=== PATIENT | female | born 1955 | race Caucasian/White ===

== ENCOUNTER 2017-07-03 20:35 | Emergency (ER) | payer MEDICARE ==
[~2017-07-03] VITALS: Ht 157.5 cm; Wt 51.8 kg
[~2017-07-03 20:35] MED LIST: BACLOFEN10 MG OR; CYANOCOBALAM1000 MCG IJ; LIBRAX1 CAP OR; METOPROL TAR25 MG PO; MIRAPEX0.25 MG OR; MIRAPEX0.5 MG OR; NEXIUM40 M1 OR; OXYCODONE5 MG OR; PENICILLN VK500 MG PO; PERCOCET1 TA2 OR; PREMARIN0.3 MG OR; PREMARIN0.9 MG OR; SYNTHROID25 MCG OR; ULTRAM50 MG PO; ZPAK OR
[2017-07-03 22:17] LABS: HEMATOCRIT 48.5 % (37.0-47.0); HEMOGLOBIN 16.3 g/dl (12.0-16.0); IMMATURE GRANULOCYTES 0.7 % (0.0-1.0); MEAN CELL VOLUME 95.1 fL CALC (80.0-100.0); MEAN CORPUSCULAR HGB CONC 33.6 g/L CALC (32.0-36.0); NEUT# 10.75 thou/uL (2.00-7.15); RED BLOOD COUNT 5.1 mill/uL (4.20-5.60); RED CELL DISTRI WIDTH 12.3 % (11.5-15.5)
[2017-07-03 22:20] LABS: URINE BILIRUBIN - DIPSTICK NEGATIVE (NEGATIVE); URINE BLOOD DIPSTICK SMALL (NEGATIVE); URINE COLOR YELLOW; URINE GLUCOSE - DIPSTICK 100 mg/dL (NEGATIVE); URINE KETONE NEGATIVE (NEGATIVE); URINE LEUK ESTERASE NEGATIVE (NEGATIVE); URINE NITRITE - DIPSTICK NEGATIVE (Negative); URINE PH 6.5 (4.5-8.0); URINE PROTEIN - DIPSTICK 100 mg/dL (NEG-TRACE); URINE SPECIFIC GRAVITY >=1.030; URINE UROBILINOGEN - DIPSTICK 0.2 E.U./dL (0.2)
[2017-07-03 22:22] LABS: URINE CLARITY CLEAR
[2017-07-03 22:29] LABS: URINE SQUAMOUS EPITHELIAL CELL FEW EPI/hpf (0-FEW); URINE WBC 0-2 WBC/hpf (0-5)
[2017-07-03 22:36] LABS: ALBUMIN 5.1 g/dL (3.2-5.0); ALKALINE PHOSPHATASE 88 u/l (38-126); AMYLASE 64 u/l (30-110); ANION GAP 21 (6-22 (CALC)); BILIRUBIN, TOTAL 0.4 mg/dL (0.0-1.4); BUN 24 mg/dL (8-23); BUN/CREATININE RATIO 22 (12-20 (CALC)); CARBON DIOXIDE 24 mmol/l (22-30); CHLORIDE 103 mmol/l (95-108); CREATININE 1.1 mg/dL (0.5-1.0); GFR 50 ML/MIN (>=60 (CALC)); GFR FOR AFR.AMER. > 60 ML/MIN (>=60 (CALC)); LIPASE 164 u/l (23-300); POTASSIUM 4.4 mmol/l (3.5-5.1); SGOT/AST 26 u/l (9-36); SGPT/ALT 27 u/l (11-66); SODIUM 143 mmol/l (137-146)
[2017-07-03 22:46] LABS: MYOGLOBIN 24 ng/mL (0 - 62)
[2017-07-04] MEDS ORDERED: Levaquin PO (00:23)
[2017-07-04 00:47] VITALS: BP 178/65
== END 2017-07-04 00:45 | disposition home or self-care (01) ==
LOC: ED 20:35
PROVIDERS: Emergency Medicine
DX: N13.2 Hydronephrosis with renal and ureteral calculous obstruction (principal); I10 Essential (primary) hypertension; N21.0 Calculus in bladder; R11.2 Nausea with vomiting, unspecified; R35.0 Frequency of micturition; R50.9 Fever, unspecified

== ENCOUNTER 2019-10-08 02:03 | Inpatient (IN) | payer MEDICARE ==
[~2019-10-08 02:03] MED LIST changes: -BACLOFEN10 MG OR; +BACLOFEN10 MG PO; +Levaquin PO; -NEXIUM40 M1 OR; +NEXIUM40 M1 PO; -PERCOCET1 TA2 OR; +PERCOCET1 TA2 PO; -SYNTHROID25 MCG OR; +SYNTHROID25 MCG PO
[2019-10-08 03:14] LABS: IMMATURE GRANULOCYTES 0.4 % (0.0-5.0); MEAN CORPUSCULAR HGB 21.8 pG CALC (26.0-32.0); MEAN CORPUSCULAR HGB CONC 29.1 g/dL CAL (32.0-36.0); NEUT# 17.04 thou/uL (2.00-7.15); RED BLOOD COUNT 5.14 mill/uL (4.20-5.60); RED CELL DISTRI WIDTH 19.9 % (11.5-15.5)
[2019-10-08 03:16] LABS: HEMATOCRIT 38.5 % (37.0-47.0); HEMOGLOBIN 11.2 g/dl (12.0-16.0); MEAN CELL VOLUME 74.9 fL CALC (80.0-100.0)
[2019-10-08 03:26] LABS: ALBUMIN 4.7 g/dL (3.2-5.0); ALKALINE PHOSPHATASE 87 u/l (38-126); BUN 9 mg/dL (8-23); BUN/CREATININE RATIO 7 (12-20 (CALC)); CARBON DIOXIDE 24 mmol/l (22-30); CHLORIDE 101 mmol/l (95-108); CREATININE 1.3 mg/dL (0.5-1.0); GFR 41 ML/MIN (>=60 (CALC)); GFR FOR AFR.AMER. 50 ML/MIN (>=60 (CALC)); SODIUM 136 mmol/l (137-146); TOTAL PROTEIN 7.9 g/dL (6.3-8.2)
[2019-10-08 03:28] LABS: ANION GAP 14 (6-22 (CALC)); BILIRUBIN, TOTAL 0.8 mg/dL (0.0-1.4); SGOT/AST 369 u/l (9-36)
[2019-10-08 04:18] LABS: AMYLASE 7140 u/l (30-110)
[2019-10-08 05:20] LABS: LIPASE 119060 u/l (23-300)
[2019-10-08 05:41] LABS: MYOGLOBIN 64 ng/mL (0 - 62)
[2019-10-08 07:50] VITALS: BP 130/62
[2019-10-08 08:09] LABS: ANION GAP 10 (6-22 (CALC)); BUN 9 mg/dL (8-23); BUN/CREATININE RATIO 10 (12-20 (CALC)); CARBON DIOXIDE 21 mmol/l (22-30); CHLORIDE 109 mmol/l (95-108); CREATININE 0.9 mg/dL (0.5-1.0); GFR > 60 ML/MIN (>=60 (CALC)); GFR FOR AFR.AMER. > 60 ML/MIN (>=60 (CALC)); MAGNESIUM 1.7 mg/dL (1.6-2.3); POTASSIUM 4.3 mmol/l (3.5-5.1); SODIUM 136 mmol/l (137-146)
[2019-10-08 16:46] VITALS: BP 118/65
[2019-10-08 20:10] VITALS: BP 131/47
[2019-10-09 03:26] VITALS: BP 129/62
[2019-10-09 05:43] LABS: MEAN CELL VOLUME 74.6 fL CALC (80.0-100.0); MEAN CORPUSCULAR HGB 22.1 pG CALC (26.0-32.0); MEAN CORPUSCULAR HGB CONC 29.6 g/dL CAL (32.0-36.0); RED BLOOD COUNT 3.9 mill/uL (4.20-5.60); RED CELL DISTRI WIDTH 19.6 % (11.5-15.5)
[2019-10-09 05:59] LABS: ALKALINE PHOSPHATASE 78 u/l (38-126); AMYLASE 442 u/l (30-110); ANION GAP 11 (6-22 (CALC)); BILIRUBIN, TOTAL 0.8 mg/dL (0.0-1.4); BUN 7 mg/dL (8-23); BUN/CREATININE RATIO 9 (12-20 (CALC)); CARBON DIOXIDE 25 mmol/l (22-30); CHLORIDE 101 mmol/l (95-108); CREATININE 0.8 mg/dL (0.5-1.0); GFR > 60 ML/MIN (>=60 (CALC)); GFR FOR AFR.AMER. > 60 ML/MIN (>=60 (CALC)); LIPASE 1045 u/l (23-300); POTASSIUM 3.8 mmol/l (3.5-5.1); SGOT/AST 113 u/l (9-36); SODIUM 133 mmol/l (137-146); TOTAL PROTEIN 6.6 g/dL (6.3-8.2)
[2019-10-09 06:33] LABS: HEMOGLOBIN 8.6 g/dl (12.0-16.0)
[2019-10-09 06:34] LABS: HEMATOCRIT 29.1 % (37.0-47.0)
[2019-10-09 07:26] VITALS: BP 139/65
[2019-10-09] MEDS ORDERED: NORVASC5 M1 PO (09:48)
[2019-10-09] MEDS ORDERED: LISINOPRIL10 MG PO (09:49)
[2019-10-09] MEDS ORDERED: PLAVIX75 MG PO (09:49)
[2019-10-09] MEDS ORDERED: GABAPENTIN100 MG PO (09:50)
[2019-10-09 15:30] VITALS: BP 137/64
[2019-10-09 18:55] VITALS: BP 128/64
[2019-10-10] VITALS (9 sets, daily range): BP systolic 138–163; BP diastolic 50–76
[2019-10-10 05:36] LABS: HEMATOCRIT 30.2 % (37.0-47.0); IMMATURE GRANULOCYTES 0.3 % (0.0-5.0); MEAN CELL VOLUME 74.4 fL CALC (80.0-100.0); MEAN CORPUSCULAR HGB 22.2 pG CALC (26.0-32.0); MEAN CORPUSCULAR HGB CONC 29.8 g/dL CAL (32.0-36.0); RED BLOOD COUNT 4.06 mill/uL (4.20-5.60); RED CELL DISTRI WIDTH 19.4 % (11.5-15.5)
[2019-10-10 05:59] LABS: ALKALINE PHOSPHATASE 82 u/l (38-126); AMYLASE 89 u/l (30-110); ANION GAP 15 (6-22 (CALC)); BILIRUBIN, TOTAL 0.8 mg/dL (0.0-1.4); BUN 7 mg/dL (8-23); BUN/CREATININE RATIO 11 (12-20 (CALC)); CARBON DIOXIDE 21 mmol/l (22-30); CHLORIDE 100 mmol/l (95-108); CREATININE 0.6 mg/dL (0.5-1.0); GFR > 60 ML/MIN (>=60 (CALC)); GFR FOR AFR.AMER. > 60 ML/MIN (>=60 (CALC)); LIPASE 185 u/l (23-300); POTASSIUM 3.4 mmol/l (3.5-5.1); SGOT/AST 44 u/l (9-36); SODIUM 133 mmol/l (137-146); TOTAL PROTEIN 6.8 g/dL (6.3-8.2)
[2019-10-11 00:05] VITALS: BP 133/65
[2019-10-11 03:55] VITALS: BP 144/66
[2019-10-11 06:11] LABS: HEMATOCRIT 28.4 % (37.0-47.0); HEMOGLOBIN 8.3 g/dl (12.0-16.0); IMMATURE GRANULOCYTES 0.6 % (0.0-5.0); MEAN CELL VOLUME 75.5 fL CALC (80.0-100.0); MEAN CORPUSCULAR HGB 22.1 pG CALC (26.0-32.0); MEAN CORPUSCULAR HGB CONC 29.2 g/dL CAL (32.0-36.0); NEUT# 6.28 thou/uL (2.00-7.15); RED BLOOD COUNT 3.76 mill/uL (4.20-5.60); RED CELL DISTRI WIDTH 19.8 % (11.5-15.5)
[2019-10-11 06:34] LABS: ANION GAP 16 (6-22 (CALC)); BUN 10 mg/dL (8-23); BUN/CREATININE RATIO 14 (12-20 (CALC)); CARBON DIOXIDE 22 mmol/l (22-30); CHLORIDE 99 mmol/l (95-108); CREATININE 0.8 mg/dL (0.5-1.0); GFR > 60 ML/MIN (>=60 (CALC)); GFR FOR AFR.AMER. > 60 ML/MIN (>=60 (CALC)); POTASSIUM 3.7 mmol/l (3.5-5.1); SODIUM 134 mmol/l (137-146)
[2019-10-11 08:05] VITALS: BP 176/54
[2019-10-11 09:09] VITALS: BP 176/54
== END 2019-10-11 13:10 | disposition home or self-care (01) | DRG 418 ==
LOC: ED 02:03 → ED-I 03:17 → ED 03:17 → ED-I 05:55 → ED 06:09 → ED-I 06:10 → MS2 06:10
PROVIDERS: Emergency Medicine; Internal Medicine; Nurse Practitioner Family; ADMIT Internal Medicine; ATTEND Internal Medicine
PROC: 0FT44ZZ Resection of Gallbladder, Percutaneous Endoscopic Approach (ICD-10-PCS; principal; 2019-10-10)
PROC: BF001ZZ Plain Radiography of Bile Ducts using Low Osmolar Contrast (ICD-10-PCS; 2019-10-10)
DX: K85.10 Biliary acute pancreatitis without necrosis or infection (principal); K80.10 Calculus of gallbladder with chronic cholecystitis without obstruction; K82.1 Hydrops of gallbladder; E87.6 Hypokalemia; I10 Essential (primary) hypertension; D50.9 Iron deficiency anemia, unspecified; I73.9 Peripheral vascular disease, unspecified; G62.9 Polyneuropathy, unspecified; E03.9 Hypothyroidism, unspecified; D49.6 Neoplasm of unspecified behavior of brain; M47.9 Spondylosis, unspecified; Z87.891 Personal history of nicotine dependence; Z95.820 Peripheral vascular angioplasty status with implants and grafts; Z11.59 Encounter for screening for other viral diseases
CPT/HCPCS: J0131; J1100; J2710; Q9967